=== PATIENT | male | born 1955 | race Two or more races ===

== ENCOUNTER 2022-10-20 23:57 | Emergency (ER) | payer MEDICARE, BC ==
[~2022-10-20] VITALS: Ht 177.8 cm; Wt 117.9 kg
[2022-10-21 00:15] VITALS: BP 128/75
[2022-10-21] MEDS ORDERED: LORAZEPAM 0.5 MG TABLET ONE (00:19)
[2022-10-21] MEDS ORDERED: LORAZEPAM 1 MG TABLET PO ONE (00:30)
--- NOTE | 2022-10-21 01:39 | NUR ---
Patient discharged to home in stable condition. Written and verbal after care instructions given. Patient verbalizes understanding of instruction.
[2022-10-21] MEDS ORDERED: LORA-258 PO (07:40)
== END 2022-10-21 01:40 | disposition home or self-care (01) ==
LOC: ER 23:59
DX: F41.9 Anxiety disorder, unspecified (principal); F32.A Depression, unspecified

== ENCOUNTER 2022-10-21 06:59 | Emergency (ER) | payer MEDICARE, BC ==
[~2022-10-21] VITALS: Ht 177.8 cm; Wt 117.9 kg
--- NOTE | 2022-10-21 07:15 | NUR ---
DR. HENDRICKSON SPOOK WITH PT ABOUT PLAN OF CARE
--- NOTE | 2022-10-21 07:20 | NUR ---
PT 67 YRS MALE WALKING TO ED FOR UNABLE TO SLEEPY DR. HENDRICKSON IN TRIAGE ROOM SPOOK WITH hem about the plan of care
[2022-10-21] MEDS ORDERED: LORA-258 PO (07:40)
[2022-10-21 07:54] LABS: BASOPHILS % (AUTO) 0.2 % (0.0-2.0); EOSINOPHILS % (AUTO) 1.2 % (0.0-6.0); HEMATOCRIT 47 % (39-51); HEMOGLOBIN 15.6 g/dL (13.5-17.5); LYMPHOCYTES # (AUTO) 2.6 K/uL (0.8-4.8); LYMPHOCYTES % (AUTO) 33.9 % (20.0-44.0); MEAN CORPUSCULAR HGB CONC 33 g/dl (31.0-36.0); MEAN CORPUSCULAR VOLUME 90 fL (80-96); MONOCYTES # (AUTO) 0.7 K/uL (0.1-1.30); MONOCYTES % (AUTO) 9.4 % (2.0-12.0); NEUTROPHILS # (AUTO) 4.2 K/uL (1.8-8.9); NEUTROPHILS % (AUTO) 55.3 % (43.0-81.0); PLATELET COUNT (AUTO) 186 K/uL (150-450); RED BLOOD CELL COUNT(AUTO) 5.23 MIL/uL (4.5-6.0); WHITE BLOOD COUNT (AUTO) 7.6 K/uL (4.3-11.0)
--- NOTE | 2022-10-21 07:55 | NUR ---
Patient walk out before discharged instraction given to pt to home in stable condition. pt fully awake and alert walking with stady gait DR. HENDRICKSON AWARE pt walking out
--- NOTE | 2022-10-21 07:55 | NUR ---
BLood drow by lab tach
[2022-10-21 08:06] VITALS: BP 141/84
[2022-10-21 08:15] LABS: CALCIUM, SERUM 8.5 mg/dL (8.5-10.1); CARBON DIOXIDE 26 mmol/L (21-32); CHLORIDE 98 mmol/L (98-107); CREATININE 0.9 mg/dL (0.6-1.3); GLUCOSE 159 mg/dL (74-106); POTASSIUM 3.3 mmol/L (3.5-5.1); SODIUM SERUM 135 mmol/L (136-145); UREA NITROGEN, BLOOD 18 mg/dL (7-18)
[2022-10-21 08:21] LABS: ALANINE AMINOTRANSFERASE 60 U/L (12-78); ALBUMIN 3.6 g/dL (3.4-5.0); ALKALINE PHOSPHATASE 66 U/L (46-116); ASPARTATE AMINOTRANSFERASE 35 U/L (15-37); BILIRUBIN,DIRECT 0.3 mg/dL (0.0-0.2); TOTAL PROTEIN, SERUM 6.8 g/dL (6.4-8.2)
[2022-10-21 08:22] LABS: ACETAMINOPHEN 0 ug/ml (10-30)
[2022-10-21 08:29] LABS: ALCOHOL, BLOOD < 3 mg/dL (0-0)
== END 2022-10-21 08:00 | disposition home or self-care (01) ==
LOC: ER 07:00
DX: F41.9 Anxiety disorder, unspecified (principal); I10 Essential (primary) hypertension; J40 Bronchitis, not specified as acute or chronic; E11.9 Type 2 diabetes mellitus without complications
CPT/HCPCS: 36415; 80048-TC; 80076-TC; 84443-TC; 85025-TC; G0480